=== PATIENT | female | born 1995 | race Native Hawaiian/Other Pacific Islander ===

== ENCOUNTER 2018-09-14 10:27 | Emergency (ER) | payer OTHER ==
[~2018-09-14] VITALS: Ht 162.6 cm; Wt 135.6 kg
[~2018-09-14 10:27] MED LIST: PRENATAL1 T10 PO
[2018-09-14 10:34] VITALS: TEMP 97.9
[2018-09-14 11:45] LABS: PLATELET COUNT 310 K/uL (152-353)
[2018-09-14 11:54] LABS: POTASSIUM 3.9 mmol/L (3.6-5.2)
[2018-09-14 13:47] VITALS: BP 136/84
== END 2018-09-14 13:48 | disposition home or self-care (01) ==
LOC: ED 10:27
PROVIDERS: Family Medicine
DX: K58.0 Irritable bowel syndrome with diarrhea (principal)
CPT/HCPCS: 36415; 80053; 81000; 85027; 99283

== ENCOUNTER 2019-01-31 02:24 | Emergency (ER) | payer OTHER ==
[~2019-01-31] VITALS: Ht 162.6 cm; Wt 134.7 kg
[2019-01-31 02:30] VITALS: BP 143/86; TEMP 99.2
== END 2019-01-31 03:38 | disposition home or self-care (01) ==
LOC: ED 02:24
DX: J02.9 Acute pharyngitis, unspecified (principal)
CPT/HCPCS: 87651; 99282; 99283

== ENCOUNTER 2019-02-25 03:30 | Emergency (ER) | payer OTHER ==
[~2019-02-25] VITALS: Ht 162.6 cm; Wt 134.7 kg
[2019-02-25 05:17] LABS: PLATELET COUNT 323 K/uL (152-353)
[2019-02-25 05:22] LABS: POTASSIUM 3.7 mmol/L (3.6-5.2)
[2019-02-25 06:05] VITALS: BP 122/77; TEMP 97.9
== END 2019-02-25 06:05 | disposition home or self-care (01) ==
LOC: ED 03:49
PROVIDERS: Emergency Medicine
DX: Z20.6 Contact with and (suspected) exposure to human immunodeficiency virus [HIV] (principal); S60.811A Abrasion of right wrist, initial encounter; W50.4XXA Accidental scratch by another person, initial encounter; Y92.239 Unspecified place in hospital as the place of occurrence of the external cause
CPT/HCPCS: 36415; 80053; 81025; 85027; 86704; 86706; 86803; 87535; 99283; G0432

== ENCOUNTER 2019-08-15 20:52 | Emergency (ER) | payer OTHER ==
[~2019-08-15] VITALS: Ht 162.6 cm; Wt 134.7 kg
[2019-08-15 21:10] VITALS: BP 117/77; TEMP 98.2
[2019-08-15 22:18] LABS: PLATELET COUNT 317 K/uL (152-353)
[2019-08-15 22:31] LABS: POTASSIUM 3.7 mmol/L (3.6-5.2)
== END 2019-08-15 22:25 | disposition home or self-care (01) ==
LOC: ED 20:52
PROVIDERS: Emergency Medicine
DX: Z20.5 Contact with and (suspected) exposure to viral hepatitis (principal); S00.81XA Abrasion of other part of head, initial encounter; S10.91XA Abrasion of unspecified part of neck, initial encounter; S00.511A Abrasion of lip, initial encounter; Y04.2XXA Assault by strike against or bumped into by another person, initial encounter; Y93.F1 Activity, caregiving, bathing; Y92.231 Patient bathroom in hospital as the place of occurrence of the external cause
CPT/HCPCS: 80053; 85027; 86706; 87340; 87535; 87902; 90471; 90715; 99283

== ENCOUNTER 2021-03-27 15:38 | Outpatient (CLI) | payer OTHER | END 2021-03-27 19:40 | disposition home or self-care (01) | LOC: RAD 15:38 | PROVIDERS: ATTEND Nurse Practitioner Family | DX: R19.7 Diarrhea, unspecified (principal) ==

== ENCOUNTER 2021-05-18 07:55 | Emergency (ER) | payer OTHER ==
[~2021-05-18] VITALS: Ht 162.6 cm; Wt 139.7 kg
[2021-05-18 08:03] VITALS: BP 124/86; TEMP 99.1
== END 2021-05-18 09:07 | disposition home or self-care (01) ==
LOC: ED 07:55
DX: S80.02XA Contusion of left knee, initial encounter (principal); W18.2XXA Fall in (into) shower or empty bathtub, initial encounter; Y92.89 Other specified places as the place of occurrence of the external cause
CPT/HCPCS: 99282